=== PATIENT | male | born 1955 | race African-American/Black ===

== ENCOUNTER 2016-07-24 10:07 | Emergency (ER) | payer OTHER ==
[~2016-07-24] VITALS: Ht 188 cm; Wt 85.8 kg
[2016-07-24 11:03] LABS: EOSINOPHIL (%) 4.6 % (0-5); EOSINOPHIL COUNT 0.2 K/uL (0-0.3); HEMATOCRIT 43.1 % (38.0-50.0); LYMPHOCYTE COUNT 1.3 K/uL (1.0-2.8); MCH 32.6 PG (29.0-34.0); MCHC 34.8 G/DL (30.0-36.0); MCV 93.7 FL (86-99); MONOCYTE (%) 14.6 % (3-12); MONOCYTE COUNT 0.5 K/uL (0-0.8); NEUTROPHIL (%) 43.6 % (45-76); NEUTROPHIL COUNT 1.5 K/uL (1.8-6.4); PLATELET COUNT 217 K/uL (156-360); RBC DIS.WIDTH-CV 12.8 % (11.8-14.6); RBC DIS.WIDTH-SD 42.8 % (39-53); WHITE BLOOD COUNT 3.5 K/uL (4.1-10.2)
[2016-07-24 11:13] LABS: CHLORIDE 103 mEq/L (99-109); POTASSIUM 3.8 mEq/L (3.7-5.4); SODIUM 141 mEq/L (136-147)
[2016-07-24 11:15] LABS: GLUCOSE 96 mg/dL (70-99)
[2016-07-24 11:16] LABS: ANION GAP 11 MEQ/L (2-14)
[2016-07-24 11:17] LABS: TOTAL BILIRUBIN 0.5 mg/dL (0.0-1.0)
[2016-07-24 11:18] LABS: ALKALINE PHOSPHATASE 54 IU/L (3-129)
[2016-07-24 11:19] LABS: GFR ESTIMATE (CALCULATED) > 59 mL/min/
[2016-07-24 11:20] LABS: UREA NITROGEN (BUN) 11 mg/dL (9-23)
[2016-07-24 11:22] LABS: LIPASE 24 U/L (1.0-51.0)
[2016-07-24 12:02] LABS: TROP-I INTERPRETATION NEGATIVE; TROPONIN-I < 0.01 ng/mL (0.0-0.30)
[2016-07-24] MEDS ORDERED: LORTAB 5-325 M1 EACH PO (13:02)
[2016-07-24] MEDS ORDERED: PRILOSEC OTC20 MG PO (13:02)
[2016-07-24] MEDS ORDERED: REGLAN10 MG PO (13:02)
[2016-07-24] MEDS ORDERED: CARAFATE1 GM PO (13:02)
[2016-07-24 13:42] VITALS: BP 124/75
== END 2016-07-24 13:43 | disposition home or self-care (01) ==
LOC: EME 10:07
PROVIDERS: Emergency Medicine
DX: K29.70 Gastritis, unspecified, without bleeding (principal); I10 Essential (primary) hypertension; Z86.010 Personal history of colon polyps
CPT/HCPCS: 74177; 76705; 80053; 83690; 84484; 85025; 99281; 99284; C9113; J1170; J2765; J7040

== ENCOUNTER 2016-10-06 06:50 | Emergency (ER) | payer OTHER ==
[~2016-10-06] VITALS: Ht 188 cm; Wt 81.7 kg
[~2016-10-06 06:50] MED LIST: CARAFATE1 GM PO; LORTAB 5-325 M1 EACH PO; PRILOSEC OTC20 MG PO; REGLAN10 MG PO
[2016-10-06 07:30] LABS: HEMATOCRIT 43.6 % (38.0-50.0); MCH 31.6 PG (29.0-34.0); MCHC 34.4 G/DL (30.0-36.0); MEAN PLAT.VOLUME 10.8 uM^3 (9.0-12.4); PLATELET COUNT 204 K/uL (156-360); RBC DIS.WIDTH-CV 12.4 % (11.8-14.6); RBC DIS.WIDTH-SD 42.3 % (39-53); RED BLOOD COUNT 4.74 M/uL (4.00-5.50); WHITE BLOOD COUNT 4.9 K/uL (4.1-10.2)
[2016-10-06 07:40] LABS: CHLORIDE 99 mEq/L (99-109); POTASSIUM 3.1 mEq/L (3.7-5.4); SODIUM 139 mEq/L (136-147)
[2016-10-06 07:41] LABS: GLUCOSE 101 mg/dL (70-99)
[2016-10-06 07:43] LABS: ANION GAP 11 MEQ/L (2-14)
[2016-10-06 07:45] LABS: GFR ESTIMATE (CALCULATED) > 59 mL/min/
[2016-10-06 07:46] LABS: UREA NITROGEN (BUN) 18 mg/dL (9-23)
[2016-10-06 08:00] LABS: TROP-I INTERPRETATION NEGATIVE; TROPONIN-I 0.02 ng/mL (0.0-0.30)
[2016-10-06 08:49] LABS: INFLUENZA A VIRAL ANTIGEN NEGATIVE; INFLUENZA B VIRAL ANTIGEN POSITIVE
[2016-10-06] MEDS ORDERED: TAMIFLU75 MG PO (09:22)
[2016-10-06] MEDS ORDERED: ZITHROMAX Z-PA250 MG PO (09:23)
[2016-10-06 09:57] VITALS: BP 105/70
== END 2016-10-06 09:58 | disposition home or self-care (01) ==
LOC: EME 06:50
PROVIDERS: Emergency Medicine
DX: J11.1 Influenza due to unidentified influenza virus with other respiratory manifestations (principal); J40 Bronchitis, not specified as acute or chronic; I10 Essential (primary) hypertension
CPT/HCPCS: 71020; 80048; 84484; 85027; 87502; 93005; 99281; 99284

== ENCOUNTER 2017-08-26 01:06 | Emergency (ER) | payer BC ==
[~2017-08-26] VITALS: Ht 185.4 cm; Wt 86.0 kg
[~2017-08-26 01:06] MED LIST changes: +TAMIFLU75 MG PO; +ZITHROMAX Z-PA250 MG PO
[2017-08-26 01:42] LABS: HEMOGLOBIN 12.4 G/DL (12.5-16.6); MCH 32.5 PG (29.0-34.0); MCHC 34.4 G/DL (30.0-36.0); MCV 94.2 FL (86-99); PLATELET COUNT 282 K/uL (156-360); RBC DIS.WIDTH-CV 13.5 % (11.8-14.6); RBC DIS.WIDTH-SD 46.1 % (39-53); RED BLOOD COUNT 3.82 M/uL (4.00-5.50); WHITE BLOOD COUNT 6.8 K/uL (4.1-10.2)
[2017-08-26 01:53] LABS: ALBUMIN 3.8 g/dL (3.2-4.8); CHLORIDE 103 mEq/L (99-109); POTASSIUM 3.9 mEq/L (3.7-5.4); SODIUM 140 mEq/L (136-147)
[2017-08-26 01:55] LABS: GLUCOSE 100 mg/dL (70-99); TOTAL PROTEIN 7.6 g/dL (6.4-8.3)
[2017-08-26 01:57] LABS: TOTAL BILIRUBIN 0.8 mg/dL (0.0-1.0)
[2017-08-26 01:59] LABS: ALKALINE PHOSPHATASE 244 IU/L (3-129); CREATININE 1.2 mg/dL (0.6-1.3); GFR ESTIMATE (CALCULATED) > 59 mL/min/ (58.99-99999)
[2017-08-26 02:00] LABS: UREA NITROGEN (BUN) 10 mg/dL (9-23)
[2017-08-26 02:01] LABS: AST (GOT) 123 IU/L (2-34)
[2017-08-26 02:02] LABS: ALT (GPT) 247 IU/L (3-49)
[2017-08-26 02:48] LABS: APPEARANCE BLOODY ((CLEAR)); COLOR RED ((YELLOW))
[2017-08-26 02:49] LABS: BILIRUBIN MODERATE; BLOOD LARGE; GLUCOSE (STRIP) NEGATIVE; KETONES TRACE; LEUKOCYTES TRACE; NITRITE POSITIVE; PROTEIN (STRIP) 100; SPECIFIC GRAVITY 1.025 (1.000-1.030); UROBILINOGEN 0.2 MG/DL (0.2-1.0)
[2017-08-26 02:59] LABS: EPITHELIAL CELLS RARE /HPF; RED BLOOD CELLS TNTC /HPF (0-5)
[2017-08-26 03:00] LABS: BACTERIA RARE /HPF; MUCUS NONE SEEN /LPF; UCUL ADDED? YES
[2017-08-26 03:04] LABS: ICTOTEST NEGATIVE
[2017-08-26] MEDS ORDERED: KEFLEX500 MG PO (07:34)
[2017-08-26 07:44] VITALS: BP 123/81
== END 2017-08-26 08:00 | disposition home or self-care (01) ==
LOC: EME 01:06
PROVIDERS: Emergency Medicine
DX: N39.0 Urinary tract infection, site not specified (principal); R31.9 Hematuria, unspecified; Z98.890 Other specified postprocedural states; R74.0 Nonspecific elevation of levels of transaminase and lactic acid dehydrogenase [LDH]; M79.605 Pain in left leg; I70.0 Atherosclerosis of aorta
CPT/HCPCS: 74177; 80053; 81003; 85027; 87086; 93971; 99281; 99285; J0696; J2405; J7030

== ENCOUNTER 2017-11-12 13:12 | Emergency (ER) | payer BC ==
[~2017-11-12] VITALS: Ht 185.4 cm; Wt 89.3 kg
[~2017-11-12 13:12] MED LIST changes: +KEFLEX500 MG PO
[2017-11-12 14:51] LABS: HEMATOCRIT 43.5 % (38.0-50.0); HEMOGLOBIN 14.9 G/DL (12.5-16.6); MCH 31.8 PG (29.0-34.0); MCHC 34.3 G/DL (30.0-36.0); MCV 92.8 FL (86-99); RBC DIS.WIDTH-CV 13.8 % (11.8-14.6); RBC DIS.WIDTH-SD 46.9 % (39-53); RED BLOOD COUNT 4.69 M/uL (4.00-5.50)
[2017-11-12 14:59] LABS: CHLORIDE 103 mEq/L (99-109); POTASSIUM 4.4 mEq/L (3.7-5.4); SODIUM 138 mEq/L (136-147)
[2017-11-12 15:01] LABS: GLUCOSE 78 mg/dL (70-99)
[2017-11-12 15:05] LABS: GFR ESTIMATE (CALCULATED) > 59 mL/min/ (58.99-99999)
[2017-11-12 15:06] LABS: UREA NITROGEN (BUN) 11 mg/dL (9-23)
[2017-11-12 15:16] LABS: TROP-I INTERPRETATION NEGATIVE; TROPONIN-I 0.01 ng/mL (0.0-0.30)
[2017-11-12 15:41] LABS: PLAT.SUFFICIENCY ADEQUATE; PLATELET COUNT 241 K/uL (156-360)
[2017-11-12 16:34] VITALS: BP 104/87
== END 2017-11-12 16:50 | disposition home or self-care (01) ==
LOC: EME 13:12
PROVIDERS: Emergency Medicine
DX: R00.2 Palpitations (principal); E78.5 Hyperlipidemia, unspecified; I10 Essential (primary) hypertension
CPT/HCPCS: 71046; 80048; 84484; 85027; 93005; 99281; 99284